=== PATIENT | female | born 1950 | race Caucasian/White ===

== ENCOUNTER 2016-11-19 11:01 | Outpatient (CLI) | payer MEDICARE ==
[2016-11-19 11:36] LABS: Bilirubin Negative (Negative); Blood, Urine Negative (Negative); Glucose, Urine (Dipstick) Negative (Negative); Ketone, Urine Negative (Negative); Nitrite Negative (Negative); Protein, Urine (Dipstick) Negative (Neg-Trace); Urobilinogen 0.2 mg/dL (0.2-1.0)
[2016-11-19 11:41] LABS: Bacteria/HPF 1+ HPF (None Seen); RBC/HPF None Seen HPF (0-3)
== END 2016-11-19 11:02 | disposition home or self-care (01) ==
LOC: NAV LAB 11:01
PROVIDERS: ATTEND Family Medicine
DX: Z11.59 Encounter for screening for other viral diseases (principal); F64.1 Dual role transvestism; N30.00 Acute cystitis without hematuria
CPT/HCPCS: 36415; 81001; 82672; 86803; 87086

== ENCOUNTER 2017-02-20 16:40 | Outpatient (CLI) | payer MEDICARE ==
[2017-02-21 18:16] LABS: Hep C IgG Ab Non-Reactive (NonReactive); Hep C Index 0.24 S/CO (0-0.79)
== END 2017-02-20 16:41 | disposition home or self-care (01) ==
LOC: NAV LAB 16:40
PROVIDERS: ATTEND Family Medicine
DX: N76.0 Acute vaginitis (principal); Z79.890 Hormone replacement therapy
CPT/HCPCS: 82672; 84403; 86803; 87070

== ENCOUNTER 2017-04-22 12:27 | Outpatient (CLI) | payer MEDICARE ==
[2017-04-22 17:53] LABS: Bilirubin Negative (Negative); Blood, Urine Negative (Negative); Clarity Clear (Clear); Glucose, Urine (Dipstick) Negative (Negative); Leukocyte Trace (Negative); Nitrite Negative (Negative); Protein, Urine (Dipstick) Negative (Neg-Trace); Urobilinogen 0.2 mg/dL (0.2-1.0); pH, Urine 6.5 (5.0-9.0)
[2017-04-22 19:09] LABS: Bacteria/HPF Rare-Few HPF (None Seen); RBC/HPF 0-3 HPF (0-3); Specific Gravity, Urine 1.004 (1.002-1.036); Squamous Epithelial 0-3 HPF (0-3); WBC/HPF 0-3 HPF (0-3)
== END 2017-04-22 12:28 | disposition home or self-care (01) ==
LOC: NAV LAB 12:27
PROVIDERS: ATTEND Family Medicine
DX: N30.00 Acute cystitis without hematuria (principal)
CPT/HCPCS: 36415; 81001; 82672

== ENCOUNTER 2017-06-01 16:35 | Outpatient (CLI) | payer MEDICARE ==
--- NOTE | 2017-06-01 16:58 | RAD ---
LEFT SHOULDER THREE VIEWS: 06/01/17 HISTORY: Shoulder pain, limited range of motion. There is some mild arthritic changes of the AC and glenohumeral joints. There is no signs of fractur e or dislocation. The bones appear slightly demineralized. IMPRESSION: Mild arthritic changes of the shoulder. POS: [facility]
== END 2017-06-01 16:36 | disposition home or self-care (01) ==
LOC: NAV RAD 16:35
PROVIDERS: ATTEND Family Medicine
DX: M75.112 Incomplete rotator cuff tear or rupture of left shoulder, not specified as traumatic (principal); F64.0 Transsexualism

== ENCOUNTER 2017-07-30 13:12 | Outpatient (CLI) | payer MEDICARE ==
[2017-07-31 18:18] LABS: Hep C IgG Ab Non-Reactive (NonReactive); Hep C Index 0.28 S/CO (0-0.79)
== END 2017-07-30 13:13 | disposition home or self-care (01) ==
LOC: NAV LAB 13:12
PROVIDERS: ATTEND Family Medicine
DX: Z11.59 Encounter for screening for other viral diseases (principal); F64.1 Dual role transvestism
CPT/HCPCS: 36415; 82672; 86803

== ENCOUNTER 2017-07-31 12:31 | Outpatient (CLI) | payer MEDICARE | END 2017-07-31 12:32 | disposition home or self-care (01) | LOC: NAV LABSP 12:31 | PROVIDERS: ATTEND Family Medicine | DX: Z01.411 Encounter for gynecological examination (general) (routine) with abnormal findings (principal) ==

== ENCOUNTER 2019-08-16 13:38 | Emergency (ER) | payer MEDICARE ==
--- NOTE | 2019-08-16 15:20 | CT ---
CT pelvis noncontrast HISTORY: Fall. Pelvic injury. FINDINGS: Mild joint space narrowing and osteophytosis of the hips. Subcortical cyst at the right yolande tabulum has enlarged. No acute fracture or dislocation. No aggressive osseous erosions. Scattered bone islands. Prominent degenerative changes lower lumbar spine. Postoperative changes of the sigmoid colon. Urinary bladder is unremarkable. Lack of contrast limits evaluation of the soft tissues. IMPRESSION: Degenerative changes of the hips. No acute osseous abnormalities are demonstrated.
--- NOTE | 2019-08-16 15:39 | RAD ---
AP PELVIS: 08/16/19 HISTORY: Injury, left hip pain. FINDINGS/IMPRESSION: No acute fracture or dislocations are identified. POS: [facility]
--- NOTE | 2019-08-16 15:40 | RAD ---
LEFT HIP TWO VIEWS: 08/16/19 HISTORY: Fall, left hip pain. FINDINGS/IMPRESSION: No acute fracture or dislocation seen. POS: [facility]
== END 2019-08-16 15:35 | disposition home or self-care (01) ==
LOC: NAV ERS 13:38
DX: S70.02XA Contusion of left hip, initial encounter (principal); Z79.899 Other long term (current) drug therapy; W18.30XA Fall on same level, unspecified, initial encounter
CPT/HCPCS: 72170; 72192

== ENCOUNTER 2019-09-14 09:07 | Outpatient (CLI) | payer MEDICARE ==
--- NOTE | 2019-09-14 09:52 | RAD ---
Radiograph right hip 2 views: DATE: 09/14/2019 HISTORY: 69-year-old female with chronic right hip pain FINDINGS: Femoral head contour is maintained. Mild central-medial hip joint space narrowing. Superior aspect of hip joint space is maintained. Minimal subcapital osteophytosis. Mild sclerosis of the acetabular roof. No acute fracture identified. No dislocation. IMPRESSION: Mild osteoarthrosis of right hip.
== END 2019-09-14 09:08 | disposition home or self-care (01) ==
LOC: NAV RAD 09:07
PROVIDERS: ATTEND Family Medicine
DX: M25.551 Pain in right hip (principal); M16.11 Unilateral primary osteoarthritis, right hip